=== PATIENT | female | born 1945 | race Caucasian/White ===

== ENCOUNTER 2021-01-18 20:20 | Emergency (ER) | payer MEDICARE, OTHER ==
[~2021-01-18] VITALS: Ht 165.1 cm; Wt 100.0 kg
[~2021-01-18 20:20] MED LIST: ASPI325T6 PO; CELEBREX 200MG200 MG PO; FERROUS SU325 MG/TAB PO; FOLIC ACID 40400 MCG PO; NORCO 325 MG-7.1 TAB PO; PRINZIDE 25 MG-1 TAB PO; VITAMIN C500 MG PO
[2021-01-18 20:34] VITALS: TEMP 98.4
[2021-01-18] MEDS ORDERED: NORCO 325 MG-51 TAB PO (22:04)
[2021-01-18 22:40] VITALS: BP 160/61; PULSE 61
== END 2021-01-18 22:45 | disposition home or self-care (01) ==
LOC: COL.ER 20:20
DX: M25.552 Pain in left hip (principal); I10 Essential (primary) hypertension; M16.12 Unilateral primary osteoarthritis, left hip; Z96.641 Presence of right artificial hip joint; Z87.891 Personal history of nicotine dependence; Z79.1 Long term (current) use of non-steroidal anti-inflammatories (NSAID); Z79.899 Other long term (current) drug therapy

== ENCOUNTER → 2021-02-18 | Outpatient (REF) ==
[~2021-02-18] MED LIST changes: +NORCO 325 MG-51 TAB PO
== END ==
LOC: ZLAB.WCH 17:33
DX: Z01.89 Encounter for other specified special examinations (principal)